=== PATIENT | female | born 1965 | race Caucasian/White ===

== ENCOUNTER 2016-06-12 16:00 | Emergency (ER) | payer SELFPAY ==
[2016-06-12] MEDS ORDERED: Lidocaine 1% 20 ML MDV INJECT ONE (16:21)
[2016-06-12] MEDS ORDERED: Diphtheria,Pertussis(Acell),Tetanus Vaccine 0.5 ML Syringe IM ONE (16:22)
[2016-06-12] MEDS ORDERED: Bacitracin Oint 1 GM U/D Packet TOP ONE (16:23)
--- NOTE | 2016-06-12 16:24 | EDM.PDOC ---
Addendum entered and electronically signed by Deb Vigil 06/12/16 17:10: Patient is complaining of quite a bit of pain to her left hand will give her a prescription hydrocodone/APAP 5/325 mg tablets one 3 times a day when necessary pain #6 tablets no refill Original Note: ED HPI Skin/Rash - General Chief Complaint: Laceration Stated Complaint: CUT LEFT HAND Time Seen by Provider: 06/12/16 16:23 Source: Reports: Patient History Limitations: Reports: No limitations - History of Present Illness INITIAL COMMENTS - FREE TEXT/NARRATIVE: HISTORY AND PHYSICAL: [ 51-year-old female presenting with laceration to the lateral dorsal surface of her left hand] History of Present Illness: [Just prior to presentation to the emergency room patient was making picture frames and the glass shattered cutting her hand. Last tetanus vaccine was 8 years ago] Review of Systems: As per history of present illness and below otherwise all systems reviewed and negative. Past medical history: As per history of present illness and as reviewed below otherwise noncontributory. Surgical history: As per history of present illness and as reviewed below otherwise noncontributory. Social history: No reported history of drug or alcohol abuse. Family history: As per history of present illness and as reviewed below otherwise noncontributory. Physical exam: Alert and oriented female answering questions well HEENT: Atraumatic, normocehpalic, pupils reactive, negative for conjunctival pallor or scleral icterus, mucous membranes moist, throat clear, neck supple, nontender, trachea midline. Lungs: Clear to auscultation, breath sounds equal bilaterally, chest non tender. Heart: S1S2, regular, negative for clicks, rubs, or JVD. Abdomen: Soft, nondistended, nontender. Negative for masses or hepatossplenmegaly. Negative for costovertebral tenderness. Extremities: Dorsum of left hand with a 4-1/2 cm laceration with multiple small flaps, full sensation is present she is able to flex and extend her fingers. Capillary Refill is less than 2 second negative for cords or calf pain. Neurovascular unremarkable. Neuro: Awake, alert, oriented. Cranial nerves II through XII unremarkable. Cerebellum unremarkable. Motor and sensory unremarkable throughout. Exam nonfocal. Diagnostics: [] Therapeutics: [Sutures placed Tetanus vaccine] Impression: [Laceration with repair left hand] Plan: [Home Keep clean and dry Sutures out in 7-[address] Reji NORTON [facility] [address] [place] [address], [address] [place] [address] Should any signs of infection heat redness pustular material he need to be reevaluated immediately ] Definitive disposition and diagnosis as appropriate pending reevaluation and review of above. Timing: Reports: still present Location, Skin: Reports: upper extremity, left Quality: Reports: Sharp Severity: moderate Known Identified Source: yes Place of Occurrence: home Sick Contact: no Associated Symptoms: Reports: no other symptoms Similar Symptoms Previously: no Recent Medical Care: no - Related Data Allergies Allergy/AdvReac Type Severity Reaction Status Date / Time morphine Allergy Nausea and Verified 06/12/14 20:52 Vomiting Home Meds: Ambulatory Orders Medication Instructions Recorded Confirmed Lisinopril 1 tab PO DAILY 06/12/14 06/12/14 Omeprazole [Prilosec] 1 cap PO DAILY 06/12/14 06/12/14 atorvaSTATin [Lipitor] 1 tab PO DAILY 06/12/14 06/12/14 sitaGLIPtin Phos/Metformin HCl 1 tab PO DAILY 06/12/14 06/12/14 [Janumet 50-1,000 MG] metFORMIN HCl [Fortamet] 06/12/16 Social & Family History - Tobacco Use Smoking Status *Q: Never Smoker - Alcohol Use Days Per Week of Alcohol Use: 0 - Recreational Drug Use Recreational Drug Use: No ED ROS GENERAL - Review of Systems Review Of Systems: ROS reveals no pertinent complaints other than HPI. ED EXAM, SKIN/RASH Exam: See Below (see dictation) ED SKIN PROCEDURES - Laceration/Wound Repair Left Anterior Lateral Hand Lac/wound length in cm: 4.5 Appearance: subcutaneous Distal NVT: neuro & vascular intact, no tendon injury Anesthetic type: local Local anesthesia - Lidocaine (Xylocaine): 1% plain Local anesthetic volume: 5cc Skin prep: saline Exploration/Debridement/Repair: wound explored, in a bloodless field, explored to base, minimal debridement Closed with: sutures, dermabond Suture size: 4-0 # of sutures: 7 Suture type: prolene, Running, simple Suture size: 4-0 # of sutures: 2 Repaired with: chromic Course - Orders/Labs/Meds Orders: Active Orders 24 hr Category Date Time Status Vaccines to be Administered [RC] PER UNIT ROUTINE Care 06/12/16 16:22 Active Meds: Medications Discontinued Medications Generic Name Dose Route Start Last Admin Trade Name Rayo PRN Reason Stop Dose Admin Bacitracin 1 dose 06/12/16 16:23 Bacitracin Oint 1 Gm TOP 06/12/16 16:24 ONETIME ONE Diphtheria/Tetanus/Acell Pertussis 0.5 ml 06/12/16 16:22 Adacel IM 06/12/16 16:23 .ONCE ONE Lidocaine HCl 20 ml 06/12/16 16:21 Xylocaine 1% INJECT 06/12/16 16:22 ONETIME ONE Octyl Cyanoacrylate 1 applic 06/12/16 16:45 Dermabond Advance TOP 06/12/16 16:46 ONETIME ONE Octyl Cyanoacrylate 1 applic 06/12/16 16:48 Dermabond Mini TOP 06/12/16 16:49 ONETIME ONE Departure - Departure Time of Disposition: 17:00 Disposition: Home, Self-Care 01 Condition: good Clinical Impression: Laceration of left hand Qualifiers: Encounter type: initial encounter Foreign body presence: without foreign body Qualified Code(s): S61.412A - Laceration without foreign body of left hand, initial encounter Referrals: Paxton Pelaez MD [Primary Care Provider] - Rachel Milan MD [Physician] - Forms: ED Department Discharge Additional Instructions: The following information is given to patients seen in the emergency department who are being discharged to home. This information is to outline your options for follow-up care. We provide all patients seen in our emergency department with a follow-up referral. The need for follow-up, as well as the timing and circumstances, are variable depending upon the specifics of your emergency department visit. If you don't have a primary care physician on staff, we will provide you with a referral. We always advise you to contact your personal physician following an emergency department visit to inform them of the circumstance of the visit and for follow-up with them and/or the need for any referrals to a consulting specialist. The emergency department will also refer you to a specialist when appropriate. This referral assures that you have the opportunity for followup care with a specialist. All of these measure are taken in an effort to provide you with optimal care, which includes your followup. Under all circumstances we always encourage you to contact your private physician who remains a resource for coordinating your care. When calling for followup care, please make the office aware that this follow-up is from your recent emergency room visit. If for any reason you are refused follow-up, please contact the [facility] emergency department at and asked to speak to the emergency department charge nurse. Followup with Dr. Kayli NORTON [facility] [address] [place] [address], [address] [place] [address] - My Orders Last 24 Hours: My Active Orders 06/12/16 16:22 Vaccines to be Administered [RC] PER UNIT ROUTINE - Assessment/Plan Last 24 Hours: My Active Orders 06/12/16 16:22 Vaccines to be Administered [RC] PER UNIT ROUTINE
[2016-06-12] MEDS ORDERED: Octyl 2-Cyanoacrylate 1 Tube TOP ONE (16:45)
[2016-06-12] MEDS ORDERED: Octyl 2-Cyanoacrylate 1 APPLIC TUBE TOP ONE (16:48)
[2016-06-12 17:33] VITALS: BP 119/76
== END 2016-06-12 17:25 | disposition home or self-care (01) ==
LOC: MW.ED 16:00
DX: S61.412A Laceration without foreign body of left hand, initial encounter (principal); Z23 Encounter for immunization; Z88.5 Allergy status to narcotic agent; Z79.899 Other long term (current) drug therapy; W25.XXXA Contact with sharp glass, initial encounter; Y92.009 Unspecified place in unspecified non-institutional (private) residence as the place of occurrence of the external cause
CPT/HCPCS: 12002; 90471; 90715; 99282; A9270; 99283

== ENCOUNTER 2018-08-19 19:04 | Emergency (ER) | payer OTHER ==
[2018-08-19] MEDS ORDERED: Sodium Chloride 0.9% 10 ML Syringe FLUSH PRN (19:34)
[2018-08-19] MEDS ORDERED: Sodium Chloride 0.9% 1,000 ML IV ONE (19:34)
[2018-08-19] MEDS ORDERED: Sodium Chloride 0.9% 2.5 ML Syringe FLUSH PRN (19:34)
[2018-08-19] MEDS ORDERED: methylPREDNISolone Sodium Succinate 125 MG/2 ML SDV IVPUSH ONE (19:34)
[2018-08-19] MEDS ORDERED: LORazepam 2 MG/ML SDV IVPUSH ONE (19:35)
[2018-08-19] MEDS ORDERED: Ketorolac 30 MG/ML SDV IVPUSH ONE (19:35)
[2018-08-19] MEDS ORDERED: Ondansetron 4 MG/2 ML SDV IVPUSH ONE (19:35)
[2018-08-19] MEDS ORDERED: diphenhydrAMINE 50 MG/ML SDV IVPUSH ONE (19:35)
--- NOTE | 2018-08-19 19:41 | EDM.PDOC ---
ED HPI GENERAL MEDICAL PROBLEM - General Chief Complaint: Headache Stated Complaint: HEADACHE Time Seen by Provider: 08/19/18 19:27 - History of Present Illness INITIAL COMMENTS - FREE TEXT/NARRATIVE: HISTORY AND PHYSICAL: History of present illness: The patient is a 53-year-old female who follows at [facility] and has a history of [id number] diabetes and hypercholesterolemia and presents with complaints of migraines in her past and not having a migraine for many years and then last month starting to have them again. She had one approximately a month ago and she followed up with her provider in the clinic after it resolved but then returned and she had a CAT scan here on July 29 which was negative. She was given medication at that time in the clinic and was told that she may have to follow-up with neurology for recommendations for maintenance medications if the headaches continued to occur. 4 days ago she started having her typical aura which are visual disturbances like Aurora lightning bolts in her eyes and the headache came on in the typical fashion on the right side. It's associated with nausea and vomiting. She called into her provider in the clinic who gave her oral Imitrex to try as well as Zofran and she said that initially it was working but now it is not. She is very frustrated and anxious because this is her third migraine headache and she is not eating given enough tools to try to treat this at home or intercept it when it started happening. She has no fevers chills chest pain or shortness of breath no sore throat no seasonal allergies or sinus pain or drainage. The pain is all over her head but more on the right side and is on the front and side. She says that the visual disturbances she initially gets as an aura have subsided and she has no blurred vision but she is sensitive to light. She has no other systemic complaints and no focal weakness numbness or tingling of her extremities except the tips of her right finger. She is here for management of her headache pain. As far as the intensity of the pain, the patient says that this is not any worse than her prior to headaches over the last one month is just not abating and she is here for help with that. The location and onset and character is all similar to the prior to headaches. Review of systems: As per history of present illness and below otherwise all systems reviewed and negative. Past medical history: As per history of present illness and as reviewed below otherwise noncontributory. Surgical history: As per history of present illness and as reviewed below otherwise noncontributory. Social history: No reported history of drug or alcohol abuse. Family history: As per history of present illness and as reviewed below otherwise noncontributory. Physical exam: General: Well-developed well-nourished overweight female who is nontoxic and vital signs are noted by me. She wears sunglasses during my interview as she is photophobic. HEENT: Atraumatic, normocephalic, pupils reactive, negative for conjunctival pallor or scleral icterus, mucous membranes moist, throat clear, neck supple, nontender, trachea midline. There is no evidence of any sinus tenderness nuchal rigidity or cervical adenopathy and I cannot reproduce the pain on palpation of the scalp or neck. She has no specific temporal artery tenderness on my exam.. Her sclerae are not injected and there is no tearing of either eye. Lungs: Clear to auscultation, breath sounds equal bilaterally, chest nontender. Heart: S1S2, regular rate and rhythm no overt murmurs Abdomen: Soft, nondistended, nontender. NABS Pelvis: Deferred Genitourinary: Deferred. Rectal: Deferred. Extremities: Atraumatic, no pedal edema Neurovascular unremarkable. Neuro: Awake, alert, oriented. Cranial nerves II through XII unremarkable. Cerebellum unremarkable. Motor and sensory unremarkable throughout. Exam nonfocal. Diagnostics: CBC CMP sedimentation rate Therapeutics: IV fluids Toradol Zofran Benadryl Solu-Medrol Ativan DHE, low dose dilaudid I discussed with the patient and at bedside that our goal with medication here is to have the pain started to trend downwards and that the likelihood of us eliminating the headache completely is small. She states understanding and says that she would like any relief that we can offer. She says that the doctor she is following with at [facility] has said that if she continues to have these headaches they would make the referral for neurology and get her on medications to be more preventative and to have further evaluation. The patient is in agreement that she does not need repeat imaging as she just had a CAT scan on July 29 which I reviewed and is negative. Patient says her headache has gone from a 10/10 to a 7/10 and she is no longer nauseated. I have discussed giving her a very small dose of Dilaudid and she says she has taken that in the past without a reaction and it is only morphine that she has had issues with. I will also give her a dose of DHE. She is currently finishing her IV fluids and I told her that after these meds she will be disposition home and I will write her for prescription of Fioricet with codeine to try. Impression: Migraine headache with aura, history of same Definitive disposition and diagnosis as appropriate pending reevaluation and review of above. 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 ED EXAM, GENERAL - Physical Exam Exam: See Below (See dictation) Course - Vital Signs Last Recorded V/S: Last Vital Signs Temp 36.4 C 08/19/18 19:23 Pulse 106 H 08/19/18 19:23 Resp 18 08/19/18 19:23 BP 134/96 H 08/19/18 19:23 Pulse Ox 94 L 08/19/18 19:23 - Orders/Labs/Meds Orders: Active Orders 24 hr Category Date Time Status Sodium Chloride 0.9% [Saline Flush] Med 08/19/18 19:34 Active 10 ml FLUSH ASDIRECTED PRN Sodium Chloride 0.9% [Saline Flush] Med 08/19/18 19:34 Active 2.5 ml FLUSH ASDIRECTED PRN Saline Lock Insert [OM.PC] Stat Oth 08/19/18 19:34 Ordered Medication Orders Sodium Chloride (Saline Flush) 10 ml FLUSH ASDIRECTED PRN PRN Reason: Keep Vein Open Sodium Chloride (Saline Flush) 2.5 ml FLUSH ASDIRECTED PRN PRN Reason: Keep Vein Open Labs: Laboratory Tests 08/19/18 08/19/18 Range/Units 19:45 19:45 WBC 9.78 (4.0-11.0) K/uL RBC 4.65 (4.30-5.90) M/uL Hgb 13.7 (12.0-16.0) g/dL Hct 40.6 (36.0-46.0) % MCV 87.3 (80.0-98.0) fL MCH 29.5 (27.0-32.0) pg MCHC 33.7 (31.0-37.0) g/dL RDW Std Deviation 45.0 (28.0-62.0) fl RDW Coeff of Mayr 14 (11.0-15.0) % Plt Count 344 (150-400) K/uL MPV 9.20 (7.40-12.00) fL Neut % (Auto) 35.1 L (48.0-80.0) % Lymph % (Auto) 54.5 H (16.0-40.0) % Glasscock % (Auto) 8.2 (0.0-15.0) % Eos % (Auto) 1.7 (0.0-7.0) % Baso % (Auto) 0.5 (0.0-1.5) % Neut # (Auto) 3.4 (1.4-5.7) K/uL Lymph # (Auto) 5.3 H (0.6-2.4) K/uL Glasscock # (Auto) 0.8 (0.0-0.8) K/uL Eos # (Auto) 0.2 (0.0-0.7) K/uL Baso # (Auto) 0.1 (0.0-0.1) K/uL Nucleated RBC % 0.0 /100WBC Nucleated RBCs # 0 K/uL ESR 19 (0-29) mm/hr Sodium 138 (136-145) mmol/L Potassium 4.1 (3.5-5.1) mmol/L Chloride 103 (98-107) mmol/L Carbon Dioxide 22.6 (21.0-32.0) mmol/L BUN 10 (7.0-18.0) mg/dL Creatinine 0.7 (0.6-1.0) mg/dL Est Cr Clr Drug Dosing 65.99 mL/min Estimated GFR (MDRD) > 60.0 ml/min Glucose 153 H (74-106) mg/dL Calcium 8.8 (8.5-10.1) mg/dL Total Bilirubin 0.2 (0.2-1.0) mg/dL AST 21 (15-37) IU/L ALT 38 (14-63) IU/L Alkaline Phosphatase 93 (46-116) U/L Total Protein 7.6 (6.4-8.2) g/dL Albumin 3.6 (3.4-5.0) g/dL Globulin 4.0 (2.6-4.0) g/dL Albumin/Globulin Ratio 0.9 (0.9-1.6) Meds: Medications Generic Name Dose Route Start Last Admin Trade Name Freq PRN Reason Stop Dose Admin Sodium Chloride 10 ml 08/19/18 19:34 Saline Flush FLUSH ASDIRECTED PRN Keep Vein Open Sodium Chloride 2.5 ml 08/19/18 19:34 Saline Flush FLUSH ASDIRECTED PRN Keep Vein Open Discontinued Medications Generic Name Dose Route Start Last Admin Trade Name Freq PRN Reason Stop Dose Admin Dihydroergotamine Mesylate 1 mg 08/19/18 20:49 Dhe 45 IVPUSH 08/19/18 20:50 ONETIME ONE Diphenhydramine HCl 25 mg 08/19/18 19:35 08/19/18 20:01 Benadryl IVPUSH 08/19/18 19:36 25 mg ONETIME ONE Administration Hydromorphone HCl 0.5 mg 08/19/18 20:50 Dilaudid IVPUSH 08/19/18 20:51 ONETIME ONE Sodium Chloride 1,000 mls @ 999 mls/hr 08/19/18 19:34 08/19/18 20:01 Normal Saline IV 08/19/18 20:34 999 mls/hr STAT ONE Administration Ketorolac Tromethamine 30 mg 08/19/18 19:35 08/19/18 20:01 Toradol IVPUSH 08/19/18 19:36 30 mg ONETIME ONE Administration Lorazepam 1 mg 08/19/18 19:35 08/19/18 20:02 Ativan IVPUSH 08/19/18 19:36 1 mg ONETIME ONE Administration Methylprednisolone Sodium Succinate 125 mg 08/19/18 19:34 08/19/18 20:01 Solu-Medrol IVPUSH 08/19/18 19:35 125 mg ONETIME ONE Administration Ondansetron HCl 4 mg 08/19/18 19:35 08/19/18 20:02 Zofran IVPUSH 08/19/18 19:36 4 mg ONETIME ONE Administration Departure - Departure Time of Disposition: 20:54 Disposition: Home, Self-Care 01 Condition: Good Clinical Impression: Migraine - Discharge Information Referrals: Barrett Solorio MD [Primary Care Provider] - Forms: ED Department Discharge Additional Instructions: The following information is given to patients seen in the emergency department who are being discharged to home. This information is to outline your options for follow-up care. We provide all patients seen in our emergency department with a follow-up referral. The need for follow-up, as well as the timing and circumstances, are variable depending upon the specifics of your emergency department visit. If you don't have a primary care physician on staff, we will provide you with a referral. We always advise you to contact your personal physician following an emergency department visit to inform them of the circumstance of the visit and for follow-up with them and/or the need for any referrals to a consulting specialist. The emergency department will also refer you to a specialist when appropriate. This referral assures that you have the opportunity for followup care with a specialist. All of these measure are taken in an effort to provide you with optimal care, which includes your followup. Under all circumstances we always encourage you to contact your private physician who remains a resource for coordinating your care. When calling for followup care, please make the office aware that this follow-up is from your recent emergency room visit. If for any reason you are refused follow-up, please contact the emergency department at and ask to speak to the emergency department charge nurse. [address] [place] [address] Please use the medications that you have at home and given to you by your provider for your headache pain and her nausea. He may also try the new prescription for your headache pain as you choose. Please connect with her provider in the clinic and get referral information for neurology for further care and evaluation of your migraines. Return to ER as needed and as discussed. - My Orders Last 24 Hours: My Active Orders 08/19/18 19:34 Sodium Chloride 0.9% [Saline Flush] 10 ml FLUSH ASDIRECTED PRN Sodium Chloride 0.9% [Saline Flush] 2.5 ml FLUSH ASDIRECTED PRN Saline Lock Insert [OM.PC] Stat - Assessment/Plan Last 24 Hours: My Active Orders 08/19/18 19:34 Sodium Chloride 0.9% [Saline Flush] 10 ml FLUSH ASDIRECTED PRN Sodium Chloride 0.9% [Saline Flush] 2.5 ml FLUSH ASDIRECTED PRN Saline Lock Insert [OM.PC] Stat
[2018-08-19 20:17] LABS: CHLORIDE,CL 103 mmol/L (98-107); SODIUM,NA 138 mmol/L (136-145)
[2018-08-19] MEDS ORDERED: Dihydroergotamine 1 MG/ML SDV IVPUSH ONE (20:49)
[2018-08-19] MEDS ORDERED: HYDROmorphone 2 MG/ML Syringe IVPUSH ONE (20:50)
[2018-08-19 21:50] VITALS: BP 96/60
== END 2018-08-19 21:21 | disposition home or self-care (01) ==
LOC: MW.ED 19:04
DX: G43.109 Migraine with aura, not intractable, without status migrainosus (principal); E78.00 Pure hypercholesterolemia, unspecified; I10 Essential (primary) hypertension; Z88.5 Allergy status to narcotic agent; Z79.899 Other long term (current) drug therapy; Z79.84 Long term (current) use of oral hypoglycemic drugs
CPT/HCPCS: 36415; 80053; 85025; 85652; 96361; 96374; 96375; 99284; J1170; J1200; J1885; J2060; J2405; J2930; J7040

== ENCOUNTER 2018-09-21 11:41 | Emergency (ER) | payer OTHER ==
[2018-09-21] MEDS ORDERED: LORazepam 2 MG/ML SDV IVPUSH ONE (11:56)
[2018-09-21] MEDS ORDERED: Sodium Chloride 0.9% 2.5 ML Syringe FLUSH PRN (11:56)
[2018-09-21] MEDS ORDERED: Ondansetron 4 MG/2 ML SDV IVPUSH ONE (11:56)
[2018-09-21] MEDS ORDERED: HYDROmorphone 2 MG/ML Syringe IVPUSH ONE (11:56)
[2018-09-21] MEDS ORDERED: Sodium Chloride 0.9% 1,000 ML IV ONE ×2 (11:56→12:56)
[2018-09-21] MEDS ORDERED: Sodium Chloride 0.9% 10 ML Syringe FLUSH PRN (11:56)
--- NOTE | 2018-09-21 12:00 | EDM.PDOC ---
ED HPI GENERAL MEDICAL PROBLEM - General Chief Complaint: Headache Stated Complaint: HEADACHE Time Seen by Provider: 09/21/18 11:50 Source of Information: Reports: Patient History Limitations: Reports: No Limitations - History of Present Illness INITIAL COMMENTS - FREE TEXT/NARRATIVE: History of present illness: []Patient has a history of migraine headaches and was in the neurology office this morning and sent to the ER due to the severity of acute pain. It started yesterday and she is been vomiting continuously. Patient denies any fevers, chills, neck stiffness or change in vision. Her headache is mostly on the right side and is a typical type for her migraines. She has had a CT and MRI of her brain which were both normal. Patient also complains of abdominal pain since starting her new migraine medications, chest pain after being given Dilaudid and bilateral leg pain from standing over the toilet vomiting last night. Review of systems: As per history of present illness and below otherwise all systems reviewed and negative. Past medical history: As per history of present illness and as reviewed below otherwise noncontributory. Surgical history: As per history of present illness and as reviewed below otherwise noncontributory. Social history: No reported history of drug or alcohol abuse. Family history: As per history of present illness and as reviewed below otherwise noncontributory. Physical exam: General: Well developed, well nourished in a painful distress and crying HEENT: Atraumatic, normocephalic, pupils 3 mm bilaterally reactive, negative for conjunctival pallor or scleral icterus, mucous membranes moist, throat clear , neck supple, no nuchal rigidity, no sinus tenderness to palpation nontender, trachea midline. Lungs: Clear to auscultation, breath sounds equal bilaterally, chest nontender. Heart: S1S2, regular, negative for clicks, rubs, or JVD. Abdomen: NABS, Soft, nondistended, nontender. Negative for masses or hepatosplenomegaly. Negative for costovertebral tenderness. Pelvis: Stable nontender. Genitourinary: Deferred. Rectal: Deferred. Extremities: Atraumatic, negative for cords or calf pain. Neurovascular unremarkable. Neuro: Awake, alert, oriented. Cranial nerves II through XII unremarkable. Cerebellum unremarkable. Motor and sensory unremarkable throughout. Exam nonfocal. Skin:warm and dry Diagnostics: EKG, Cardiac monitoring, bedside glucose-106 Therapeutics: IV hydration, Dilaudid, Toradol, Ativan, reglan ED Course: Improved after 2 L of saline and Reglan. Impression: Migraine headache Prescriptions: None Plan: Take meds as directed, follow up with your primary care physician, return to ER if symptoms worsen or change. Definitive disposition and diagnosis as appropriate pending reevaluation and review of above. Headache Pain Score (Numeric/FACES): 10 chest Pain Score (Numeric/FACES): 5 - Related Data Allergies Allergy/AdvReac Type Severity Reaction Status Date / Time morphine Allergy Nausea and Verified 09/21/18 11:48 Vomiting Home Meds: Home Meds Lisinopril 2.5 mg PO DAILY 06/12/14 [History] atorvaSTATin [Lipitor] 1 tab PO DAILY 06/12/14 [History] metFORMIN HCl [Fortamet] 1,000 mg PO BID 06/12/16 [History] ALPRAZolam [Alprazolam] 0.25 mg PO ASDIRECTED 09/21/18 [History] ALPRAZolam [Alprazolam] 1 mg PO ASDIRECTED 09/21/18 [History] Butalbit/Acetamin/Caff/Codeine [Qdypkg-Uatyvboufli-Swrb-Codein] 1 each PO ASDIRECTED 09/21/18 [History] Dulaglutide [Trulicity] 0.75 mg SQ WEEKLY 09/21/18 [History] Promethazine [Phenergan] 12.5 mg PO Q4H PRN 09/21/18 [History] Zolpidem [Ambien] 10 mg PO BID 09/21/18 [History] glipiZIDE [Glipizide ER] 5 mg PO DAILY 09/21/18 [History] Past Medical History HEENT History: Reports: None Cardiovascular History: Reports: High Cholesterol, Hypertension Respiratory History: Reports: None Gastrointestinal History: Reports: None Genitourinary History: Reports: None [employer] History: Reports: None Musculoskeletal History: Reports: None Neurological History: Reports: Migraines Psychiatric History: Reports: None Endocrine/Metabolic History: Reports: Diabetes, Type II Hematologic History: Reports: None Immunologic History: Reports: None Oncologic (Cancer) History: Reports: None Dermatologic History: Reports: None - Infectious Disease History Infectious Disease History: Reports: None - Past Surgical History Head Surgeries/Procedures: Reports: None Social & Family History - Family History Family Medical History: Noncontributory - Tobacco Use Smoking Status *Q: Never Smoker - Caffeine Use Caffeine Use: Reports: Coffee - Recreational Drug Use Recreational Drug Use: No ED ROS GENERAL - Review of Systems Review Of Systems: See Below - Physical Exam Exam: See Below Course - Vital Signs Last Recorded V/S: Last Vital Signs Temp 97.3 F 09/21/18 11:48 Pulse 80 09/21/18 14:37 Resp 16 09/21/18 14:37 BP 150/90 H 09/21/18 14:37 Pulse Ox 95 09/21/18 14:37 - Orders/Labs/Meds Orders: Active Orders 24 hr Category Date Time Status Blood Glucose Check, Bedside [RC] ONETIME Care 09/21/18 13:08 Active EKG Documentation Completion [RC] STAT Care 09/21/18 13:17 Active Saline Lock Insert [OM.PC] Stat Oth 09/21/18 11:56 Ordered Labs: Laboratory Tests 09/21/18 Range/Units 13:10 POC Glucose 106 (60-110) mg/dL Meds: Medications Discontinued Medications Generic Name Dose Route Start Last Admin Trade Name Freq PRN Reason Stop Dose Admin Hydromorphone HCl 0.5 mg 09/21/18 11:56 09/21/18 12:26 Dilaudid IVPUSH 09/21/18 11:57 0.5 mg ONETIME ONE Administration Sodium Chloride 1,000 mls @ 999 mls/hr 09/21/18 11:56 09/21/18 12:13 Normal Saline IV 09/21/18 12:56 999 mls/hr .Bolus ONE Administration Sodium Chloride 1,000 mls @ 999 mls/hr 09/21/18 12:56 09/21/18 13:09 Normal Saline IV 09/21/18 13:56 999 mls/hr .Bolus ONE Administration Ketorolac Tromethamine 30 mg 09/21/18 12:56 09/21/18 13:09 Toradol IVPUSH 09/21/18 12:57 30 mg ONETIME ONE Administration Lorazepam 0.5 mg 09/21/18 11:56 09/21/18 12:21 Ativan IVPUSH 09/21/18 11:57 0.5 mg ONETIME ONE Administration Metoclopramide HCl 10 mg 09/21/18 13:46 09/21/18 13:47 Reglan IVPUSH 09/21/18 13:47 Not Given ONETIME ONE Metoclopramide HCl 10 mg 09/21/18 13:46 09/21/18 13:55 Reglan IV 09/21/18 13:47 10 mg ONETIME ONE Administration Ondansetron HCl 4 mg 09/21/18 11:56 09/21/18 12:18 Zofran IVPUSH 09/21/18 11:57 4 mg ONETIME ONE Administration Sodium Chloride 10 ml 09/21/18 11:56 09/21/18 13:09 Saline Flush FLUSH 10 ml ASDIRECTED PRN Administration Keep Vein Open Sodium Chloride 2.5 ml 09/21/18 11:56 09/21/18 13:09 Saline Flush FLUSH 2.5 ml ASDIRECTED PRN Administration Keep Vein Open Departure - Departure Time of Disposition: 14:36 Disposition: Home, Self-Care 01 Condition: Good Clinical Impression: Migraine headache Qualifiers: Migraine type: unspecified Status migrainosus presence: without status migrainosus Intractability: not intractable Qualified Code(s): G43.909 - Migraine, unspecified, not intractable, without status migrainosus - Discharge Information *PRESCRIPTION DRUG MONITORING PROGRAM REVIEWED*: Not Applicable *COPY OF PRESCRIPTION DRUG MONITORING REPORT IN PATIENT MARIA GUADALUPE: Not Applicable Instructions: Migraine Headache, [id number] Referrals: [employer]rely[employer]ano, JEWELRY SALES REPRESENTATIVE [Nurse Practitioner] - 09/22/18 8:30 am Forms: ED Department Discharge Additional Instructions: The following information is given to patients seen in the emergency department who are being discharged to home. This information is to outline your options for follow-up care. We provide all patients seen in our emergency department with a follow-up referral. The need for follow-up, as well as the timing and circumstances, are variable depending upon the specifics of your emergency department visit. If you don't have a primary care physician on staff, we will provide you with a referral. We always advise you to contact your personal physician following an emergency department visit to inform them of the circumstance of the visit and for follow-up with them and/or the need for any referrals to a consulting specialist. The emergency department will also refer you to a specialist when appropriate. This referral assures that you have the opportunity for follow-up care with a specialist. All of these measure are taken in an effort to provide you with optimal care, which includes your follow-up. Under all circumstances we always encourage you to contact your private physician who remains a resource for coordinating your care. When calling for follow-up care, please make the office aware that this follow-up is from your recent emergency room visit. If for any reason you are refused follow-up, please contact the [facility] Emergency Department at and asked to speak to the emergency department charge nurse. Take meds as directed, follow up with your primary care physician, return to ER if symptoms worsen or change. [facility] [address] [place] [id number] - My Orders Last 24 Hours: My Active Orders 09/21/18 11:56 Saline Lock Insert [OM.PC] Stat 09/21/18 13:08 Blood Glucose Check, Bedside [RC] ONETIME 09/21/18 13:17 EKG Documentation Completion [RC] STAT - Assessment/Plan Last 24 Hours: My Active Orders 09/21/18 11:56 Saline Lock Insert [OM.PC] Stat 09/21/18 13:08 Blood Glucose Check, Bedside [RC] ONETIME 09/21/18 13:17 EKG Documentation Completion [RC] STAT
[2018-09-21] MEDS ORDERED: Ketorolac 30 MG/ML SDV IVPUSH ONE (12:56)
[2018-09-21] MEDS ORDERED: Metoclopramide 10 MG/2 ML SDV IVPUSH ONE (13:46)
[2018-09-21] MEDS ORDERED: Metoclopramide 10 MG/2 ML SDV IV ONE (13:46)
[2018-09-21 14:38] VITALS: BP 150/90
== END 2018-09-21 14:52 | disposition home or self-care (01) ==
LOC: MW.ED 11:41
DX: G43.909 Migraine, unspecified, not intractable, without status migrainosus (principal); I10 Essential (primary) hypertension; E11.9 Type 2 diabetes mellitus without complications; E78.00 Pure hypercholesterolemia, unspecified; Z88.5 Allergy status to narcotic agent; Z79.84 Long term (current) use of oral hypoglycemic drugs; Z79.899 Other long term (current) drug therapy
CPT/HCPCS: 82962; 93005; 96361; 96374; 96375; 99284; J1170; J1885; J2060; J2405; J2765; J7040

== ENCOUNTER 2019-01-23 16:07 | Observation (INO) | payer OTHER ==
[2019-01-23] MEDS ORDERED: Aspirin 81 MG Tab.Chew PO ONE (16:42)
[2019-01-23] MEDS ORDERED: Sodium Chloride 0.9% 1,000 ML IV ONE (16:43)
--- NOTE | 2019-01-23 16:45 | EDM.PDOC ---
ED HPI GENERAL MEDICAL PROBLEM - General Chief Complaint: Chest Pain Stated Complaint: CHEST PAIN Time Seen by Provider: 01/23/19 16:23 Source of Information: Reports: Patient History Limitations: Reports: No Limitations - History of Present Illness INITIAL COMMENTS - FREE TEXT/NARRATIVE: HISTORY AND PHYSICAL: History of present illness: Patient is a 53-year-old female who presents to the ED today with concern of chest pain over the last 2 hours. Patient states the pain is in the middle of her chest and is a sharp and dull sensation. Patient states she did have an episode of chest pain yesterday but it only lasted a few seconds before resolving. Patient states she does have a history of type 2 diabetes. Patient states that her mother did pass away in her 50s due to a heart attack in her father also had a heart attack when he was 39. Patient states she has not taken anything for her symptoms. Patient denies fever, chills, shortness of breath, or cough. Denies headache, neck stiff ness, change in vision, syncope, or near syncope. Denies nausea, vomiting, abdominal pain, diarrhea, constipation, or dysuria. Has not noted any blood in urine or stool. Patient has been eating and drinking appropriately. Review of systems: As per history of present illness and below otherwise all systems reviewed and negative. Past medical history: As per history of present illness and as reviewed below otherwise noncontributory. Surgical history: As per history of present illness and as reviewed below otherwise noncontributory. Social history: See social history for further information Family history: As per history of present illness and as reviewed below otherwise noncontributory. Physical exam: General: Patient is alert, oriented, and in no acute distress. Patient sitting comfortably on exam table. HEENT: Atraumatic, normocephalic, pupils equal and reactive bilaterally, negative for conjunctival pallor or scleral icterus, mucous membranes moist, TMs normal bilaterally, throat clear, neck supple, nontender, trachea midline. No drooling or trismus noted. No meningeal signs. No hot potato voice noted. Lungs: Clear to auscultation, breath sounds equal bilaterally, chest nontender. Heart: S1S2, regular rate and rhythm without overt murmur Abdomen: Soft, nondistended, nontender. Negative for masses or hepatosplenomegaly. Negative for costovertebral tenderness. Pelvis: Stable nontender. Genitourinary: Deferred. Rectal: Deferred. Skin: Intact, warm, dry. No lesions or rashes noted. Extremities: Atraumatic, negative for cords or calf pain. Neurovascular unremarkable. Neuro: Awake, alert, oriented. Cranial nerves II through XII unremarkable. Cerebellum unremarkable. Motor and sensory unremarkable throughout. Exam nonfocal. Notes: Dr. López consulted on patient and accepting of admission to observation on telemetry Voices understanding and is agreeable to plan of care. Denies any further questions or concerns at this time. Diagnostics: CBC, CMP, UA, EKG, CXR, Troponin, Lipase Therapeutics: ASA, Nitro Impression: Chest pain, r/o ACS Plan: Admit to observation on telemetry to Dr. López Definitive disposition and diagnosis as appropriate pending reevaluation and review of above. mid chest Pain Score (Numeric/FACES): 5 - Related Data Allergies Allergy/AdvReac Type Severity Reaction Status Date / Time morphine Allergy Nausea and Verified 01/23/19 16:14 Vomiting Home Meds: Home Meds Lisinopril 2.5 mg PO DAILY 06/12/14 [History] atorvaSTATin [Lipitor] 1 tab PO DAILY 06/12/14 [History] metFORMIN HCl [Fortamet] 1,000 mg PO BID 06/12/16 [History] Dulaglutide [Trulicity] 1.25 mg SQ WEEKLY 09/21/18 [History] Zolpidem [Ambien] 10 mg PO BID 09/21/18 [History] glipiZIDE [Glipizide ER] 5 mg PO DAILY 09/21/18 [History] Past Medical History HEENT History: Reports: None Cardiovascular History: Reports: High Cholesterol, Hypertension Respiratory History: Reports: None Gastrointestinal History: Reports: None Genitourinary History: Reports: None [employer]ER History: Reports: None Musculoskeletal History: Reports: None Neurological History: Reports: Migraines Psychiatric History: Reports: None Endocrine/Metabolic History: Reports: Diabetes, Type II Hematologic History: Reports: None Immunologic History: Reports: None Oncologic (Cancer) History: Reports: None Dermatologic History: Reports: None - Infectious Disease History Infectious Disease History: Reports: Chicken Pox - Past Surgical History Head Surgeries/Procedures: Reports: None Social & Family History - Family History Family Medical History: Noncontributory - Tobacco Use Smoking Status *Q: Never Smoker - Caffeine Use Caffeine Use: Reports: Coffee - Recreational Drug Use Recreational Drug Use: No ED ROS GENERAL - Review of Systems Review Of Systems: Comprehensive ROS is negative, except as noted in HPI. ED EXAM, GENERAL - Physical Exam Exam: See Below (see dictation) Course - Vital Signs Last Recorded V/S: Last Vital Signs Temp 97.0 F 01/23/19 16:11 Pulse 90 01/23/19 16:11 Resp 16 01/23/19 16:11 BP 114/69 01/23/19 17:18 Pulse Ox 99 01/23/19 16:11 - Orders/Labs/Meds Orders: Active Orders 24 hr Category Date Time Status Admission Status [Patient Status] [ADT] Stat ADT 01/23/19 17:17 Ordered EKG Documentation Completion [RC] STAT Care 01/23/19 16:23 Active UA W/MICROSCOPIC [URIN] Stat Lab 01/23/19 17:00 Results Sodium Chloride 0.9% [Normal Saline] 1,000 ml Med 01/23/19 16:43 Active IV STAT Medication Orders Sodium Chloride (Normal Saline) 1,000 mls @ 999 mls/hr IV STAT ONE Stop: 01/23/19 17:43 Last Admin: 01/23/19 17:02 Dose: 999 mls/hr Labs: Laboratory Tests 01/23/19 01/23/19 01/23/19 Range/Units 16:15 16:15 17:00 WBC 12.74 H (4.0-11.0) K/uL RBC 4.41 (4.30-5.90) M/uL Hgb 13.4 (12.0-16.0) g/dL Hct 39.1 (36.0-46.0) % MCV 88.7 (80.0-98.0) fL MCH 30.4 (27.0-32.0) pg MCHC 34.3 (31.0-37.0) g/dL RDW Std Deviation 44.1 (28.0-62.0) fl RDW Coeff of Mary 14 (11.0-15.0) % Plt Count 337 (150-400) K/uL MPV 9.80 (7.40-12.00) fL Neut % (Auto) 43.3 L (48.0-80.0) % Lymph % (Auto) 46.4 H (16.0-40.0) % [place] % (Auto) 8.9 (0.0-15.0) % Eos % (Auto) 1.1 (0.0-7.0) % Baso % (Auto) 0.3 (0.0-1.5) % Neut # (Auto) 5.5 (1.4-5.7) K/uL Lymph # (Auto) 5.9 H (0.6-2.4) K/uL [place] # (Auto) 1.1 H (0.0-0.8) K/uL Eos # (Auto) 0.1 (0.0-0.7) K/uL Baso # (Auto) 0.0 (0.0-0.1) K/uL Nucleated RBC % 0.0 /100WBC Nucleated RBCs # 0 K/uL Sodium 142 (136-145) mmol/L Potassium 3.6 (3.5-5.1) mmol/L Chloride 105 (98-107) mmol/L Carbon Dioxide 24.3 (21.0-32.0) mmol/L BUN 8 (7.0-18.0) mg/dL Creatinine 0.6 (0.6-1.0) mg/dL Est Cr Clr Drug Dosing 76.99 mL/min Estimated GFR (MDRD) > 60.0 ml/min Glucose 111 H (74-106) mg/dL Calcium 8.6 (8.5-10.1) mg/dL Total Bilirubin 0.1 L (0.2-1.0) mg/dL AST 31 (15-37) IU/L ALT 64 H (14-63) IU/L Alkaline Phosphatase 88 (46-116) U/L Troponin I < 0.050 (0.000-0.056) ng/mL Total Protein 7.5 (6.4-8.2) g/dL Albumin 3.7 (3.4-5.0) g/dL Globulin 3.8 (2.6-4.0) g/dL Albumin/Globulin Ratio 1.0 (0.9-1.6) Lipase 133 (73-393) U/L Urine Color YELLOW Urine Appearance CLEAR Urine pH 6.0 (5.0-8.0) Ur Specific [place] 1.010 (1.001-1.035) Urine Protein NEGATIVE (NEGATIVE) mg/dL Urine Glucose (UA) NEGATIVE (NEGATIVE) mg/dL Urine Ketones NEGATIVE (NEGATIVE) mg/dL Urine Occult Blood TRACE-INTACT H (NEGATIVE) Urine Nitrite NEGATIVE (NEGATIVE) Urine Bilirubin NEGATIVE (NEGATIVE) Urine Urobilinogen 0.2 (<2.0) EU/dL Ur Leukocyte Esterase NEGATIVE (NEGATIVE) Meds: Medications Generic Name Dose Route Start Last Admin Trade Name Freq PRN Reason Stop Dose Admin Sodium Chloride 1,000 mls @ 999 mls/hr 01/23/19 16:43 01/23/19 17:02 Normal Saline IV 01/23/19 17:43 999 mls/hr STAT ONE Administration Discontinued Medications Generic Name Dose Route Start Last Admin Trade Name Freq PRN Reason Stop Dose Admin Aspirin 324 mg 01/23/19 16:42 01/23/19 17:02 Aspirin PO 01/23/19 16:43 324 mg ONETIME ONE Administration Nitroglycerin 0.4 mg 01/23/19 16:42 01/23/19 17:18 Nitrostat SL 0.4 mg Q5M PRN Administration Chest Pain Departure - Departure Time of Disposition: 17:19 Disposition: Refer to Observation Clinical Impression: Chest pain Qualifiers: Chest pain type: unspecified Qualified Code(s): R07.9 - Chest pain, unspecified - Discharge Information Referrals: PCP,Unobtain [Primary Care Provider] - Forms: ED Department Discharge Sepsis Event Note - Evaluation Sepsis Screening Result: No Definite Risk - Focused Exam Vital Signs: Vital Signs Temp Pulse Resp BP BP Pulse Ox 01/23/19 17:18 114/69 01/23/19 17:12 109/72 01/23/19 17:05 132/63 01/23/19 16:11 97.0 F 90 16 173/64 H 99 Date Exam was Performed: 01/23/19 Time Exam was Performed: 17:18 - My Orders Last 24 Hours: My Active Orders 01/23/19 16:23 EKG Documentation Completion [RC] STAT 01/23/19 16:43 Sodium Chloride 0.9% [Normal Saline] 1,000 ml IV STAT 01/23/19 17:00 UA W/MICROSCOPIC [URIN] Stat 01/23/19 17:17 Admission Status [Patient Status] [ADT] Stat - Assessment/Plan Last 24 Hours: My Active Orders 01/23/19 16:23 EKG Documentation Completion [RC] STAT 01/23/19 16:43 Sodium Chloride 0.9% [Normal Saline] 1,000 ml IV STAT 01/23/19 17:00 UA W/MICROSCOPIC [URIN] Stat 01/23/19 17:17 Admission Status [Patient Status] [ADT] Stat
[2019-01-23 17:05] LABS: BLOOD UREA NITROGEN,BUN 8 mg/dL (7.0-18.0); CARBON DIOXIDE,CO2 24.3 mmol/L (21.0-32.0); CHLORIDE,CL 105 mmol/L (98-107); GLUCOSE RANDOM 111 mg/dL (74-106); LIPASE 133 U/L (73-393); POTASSIUM,K 3.6 mmol/L (3.5-5.1); SODIUM,NA 142 mmol/L (136-145)
[2019-01-23] MEDS: Nitroglycerin 0.4 MG Tab.SL SL PRN ×3 (17:05→17:18)
--- NOTE | 2019-01-23 17:13 | CR ---
Indication: Chest pain. Technique: Single AP portable view of the chest. Comparison: None Findings: The right hemidiaphragm is elevated. The heart is normal in size. The lungs are clear. No infiltrate, pleural effusion, or pneumothorax is identified. Impression: No acute cardiopulmonary process. Dictated by Irene Chand MD @ Jan 23 2019 5:11PM Signed by Dr. Irene Chand @ Jan 23 2019 5:12PM
--- NOTE | 2019-01-23 18:05 | PCM.HP.2 ---
<Chris Kong - Last Filed: 01/23/19 18:00> H&P History of Present Illness - General Date of Service: 01/23/19 Admit Problem/Dx: Admission Diagnosis/Problem Admission Diagnosis/Problem Chest pain Source of Information: Patient History Limitations: Reports: No Limitations - History of Present Illness Initial Comments - Free Text/Narative: Patient is a 53-year-old female with a past medical history of type 2 diabetes; last A1c of 7.9 less than 1 month ago; presenting today with 2 episodes of chest pain. Initial episode of chest pain was yesterday in the afternoon; patient was cleaning her porch when she noticed a centralized chest discomfort and some problems catching her breath. Patient admits having to go inside and sit down with resolution of pain and discomfort within 1 to 2 hours. This afternoon patient had another episode while at a friend's house; denies any exertion or any preceding events; describes pressure at the sternum without radiation of pain; denies any jaw claudication or left arm weakness; states having some mild shortness of breath. Patient endorses a strong family history of premature cardiac's events. Patient denies any history of tobacco abuse, illicit drug abuse and or consuming greater than social amount of alcohol. ER course: Initial troponin negative. Chest x-ray negative. Patient given aspirin and nitro with more or less resolution of pain. Patient denied any shortness of breath Bedside: Patient endorsing a 1 out of 10 central chest discomfort; denies any shortness of breath. Patient does not endorse any history of anxiety and/or depression but is curious to know whether this is anxiety. No other complaints at this time. mid chest Pain Score (Numeric/FACES): 5 - Related Data Allergies/Adverse Reactions: Allergies Allergy/AdvReac Type Severity Reaction Status Date / Time morphine Allergy Nausea and Verified 01/23/19 18:44 Vomiting Home Medications: Home Meds Lisinopril 2.5 mg PO DAILY 06/12/14 [History] atorvaSTATin [Lipitor] 1 tab PO DAILY 06/12/14 [History] metFORMIN HCl [Fortamet] 1,000 mg PO BID 06/12/16 [History] Dulaglutide [Trulicity] 1.5 mg SQ WEEKLY 09/21/18 [History] Zolpidem [Ambien] 10 mg PO BID PRN 09/21/18 [History] glipiZIDE [Glipizide ER] 5 mg PO DAILY 09/21/18 [History] Insulin Glargine,Hum.Rec.Anlog [Basaglar Kwikpen U-100] 80 unit SQ DAILY [History] Past Medical History HEENT History: Reports: None Cardiovascular History: Reports: High Cholesterol, Hypertension Respiratory History: Reports: None Gastrointestinal History: Reports: None Genitourinary History: Reports: None ADMISSIONS EVALUATOR History: Reports: None Musculoskeletal History: Reports: None Neurological History: Reports: Migraines Psychiatric History: Reports: None Endocrine/Metabolic History: Reports: Diabetes, Type II Hematologic History: Reports: None Immunologic History: Reports: None Oncologic (Cancer) History: Reports: None Dermatologic History: Reports: None - Infectious Disease History Infectious Disease History: Reports: Chicken Pox - Past Surgical History Head Surgeries/Procedures: Reports: None Social & Family History - Family History Family Medical History: Noncontributory - Tobacco Use Smoking Status *Q: Never Smoker - Caffeine Use Caffeine Use: Reports: Coffee - Recreational Drug Use Recreational Drug Use: No H&P Review of Systems - Review of Systems: Review Of Systems: See Below General: Denies: Fever, Chills, Malaise, Fatigue HEENT: Denies: Eye Pain, Sore Throat Pulmonary: Denies: Shortness of Breath, Pleuritic Chest Pain, Cough Cardiovascular: Reports: Chest Pain. Denies: Palpitations, Dyspnea on Exertion , Edema, Lightheadedness Gastrointestinal: Denies: Abdominal Pain, Constipation, Diarrhea, Decreased Appetite Genitourinary: Denies: Dysuria, Frequency, Burning, Urgency, Incontinence, Hematuria Musculoskeletal: Denies: Back Pain Skin: Denies: Rash Psychiatric: Reports: Anxiety. Denies: Confusion, Depression Neurological: Denies: Headache Exam - Exam Exam: See Below - Vital Signs Vital Signs: Last Vital Signs Temp 97.0 F 01/23/19 16:11 Pulse 86 01/23/19 17:22 Resp 18 01/23/19 17:22 BP 106/66 01/23/19 17:22 Pulse Ox 98 01/23/19 17:22 Weight: 103.419 kg - Exam General: Alert, Oriented, Cooperative HEENT: EOMI, Hearing Intact, Mucosa Moist & [place] Neck: Supple, Trachea Midline Lungs: Clear to Auscultation, Normal Respiratory Effort Cardiovascular: Regular Rate, Regular Rhythm GI/Abdominal Exam: Soft, Non-Tender, Other (obeses abdomen: previous scar secondary to hernia repair ) Back Exam: Normal Inspection. No: CVA Tenderness (L), CVA Tenderness (R) Extremities: Normal Range of Motion Skin: Warm, Dry, Intact Neurological: Cranial Nerves Intact Neuro Extensive - Mental Status: Alert, Oriented x3 - Patient Data Lab Results Last 24 hrs: Laboratory Results - last 24 hr 01/23/19 01/23/19 01/23/19 Range/Units 16:15 16:15 17:00 WBC 12.74 H (4.0-11.0) K/uL RBC 4.41 (4.30-5.90) M/uL Hgb 13.4 (12.0-16.0) g/dL Hct 39.1 (36.0-46.0) % MCV 88.7 (80.0-98.0) fL MCH 30.4 (27.0-32.0) pg MCHC 34.3 (31.0-37.0) g/dL RDW Std Deviation 44.1 (28.0-62.0) fl RDW Coeff of Mary 14 (11.0-15.0) % Plt Count 337 (150-400) K/uL MPV 9.80 (7.40-12.00) fL Neut % (Auto) 43.3 L (48.0-80.0) % Lymph % (Auto) 46.4 H (16.0-40.0) % Bradley % (Auto) 8.9 (0.0-15.0) % Eos % (Auto) 1.1 (0.0-7.0) % Baso % (Auto) 0.3 (0.0-1.5) % Neut # (Auto) 5.5 (1.4-5.7) K/uL Lymph # (Auto) 5.9 H (0.6-2.4) K/uL Bradley # (Auto) 1.1 H (0.0-0.8) K/uL Eos # (Auto) 0.1 (0.0-0.7) K/uL Baso # (Auto) 0.0 (0.0-0.1) K/uL Nucleated RBC % 0.0 /100WBC Nucleated RBCs # 0 K/uL Sodium 142 (136-145) mmol/L Potassium 3.6 (3.5-5.1) mmol/L Chloride 105 (98-107) mmol/L Carbon Dioxide 24.3 (21.0-32.0) mmol/L BUN 8 (7.0-18.0) mg/dL Creatinine 0.6 (0.6-1.0) mg/dL Est Cr Clr Drug Dosing 76.99 mL/min Estimated GFR (MDRD) > 60.0 ml/min Glucose 111 H (74-106) mg/dL Calcium 8.6 (8.5-10.1) mg/dL Total Bilirubin 0.1 L (0.2-1.0) mg/dL AST 31 (15-37) IU/L ALT 64 H (14-63) IU/L Alkaline Phosphatase 88 (46-116) U/L Troponin I < 0.050 (0.000-0.056) ng/mL Total Protein 7.5 (6.4-8.2) g/dL Albumin 3.7 (3.4-5.0) g/dL Globulin 3.8 (2.6-4.0) g/dL Albumin/Globulin Ratio 1.0 (0.9-1.6) Lipase 133 (73-393) U/L Urine Color YELLOW Urine Appearance CLEAR Urine pH 6.0 (5.0-8.0) Ur Specific Kegley 1.010 (1.001-1.035) Urine Protein NEGATIVE (NEGATIVE) mg/dL Urine Glucose (UA) NEGATIVE (NEGATIVE) mg/dL Urine Ketones NEGATIVE (NEGATIVE) mg/dL Urine Occult Blood TRACE-INTACT H (NEGATIVE) Urine Nitrite NEGATIVE (NEGATIVE) Urine Bilirubin NEGATIVE (NEGATIVE) Urine Urobilinogen 0.2 (<2.0) EU/dL Ur Leukocyte Esterase NEGATIVE (NEGATIVE) Urine RBC 0-2 (0-2/HPF) Urine WBC 0-1 (0-5/HPF) Ur Epithelial Cells OCCASIONAL (NONE-FEW) Amorphous Sediment RARE (NEGATIVE) Urine Bacteria FEW (NEGATIVE) Urine Mucus LIGHT (NONE-MOD) Result Diagrams: 01/23/19 16:15 01/23/19 16:15 EKG INTERPRETATION Rhythm: NSR Sepsis Event Note - Evaluation Sepsis Screening Result: No Definite Risk - Focused Exam Vital Signs: Vital Signs Temp Pulse Resp BP BP Pulse Ox 12/16/19 17:22 86 18 106/66 98 01/23/19 17:18 114/69 01/23/19 17:12 109/72 01/23/19 17:05 132/63 01/23/19 16:11 97.0 F 90 16 173/64 H 99 Date Exam was Performed: 01/23/19 Time Exam was Performed: 18:00 Problem List Initiated/Reviewed/Updated: Yes Orders Last 24hrs: Active Orders 24 hr Category Date Time Status Admission Status [Patient Status] [ADT] Stat ADT 01/23/19 17:17 Active Activity as Tolerated [RC] .Routine Care 01/23/19 17:52 Ordered Antiembolic Devices [RC] PER UNIT ROUTINE Care 01/23/19 17:54 Ordered EKG Documentation Completion [RC] STAT Care 01/23/19 16:23 Active [employer] Diet [DIET] Diet 01/24/19 Breakfast Ordered CBC WITH AUTO DIFF [HEME] AM Lab 01/24/19 05:11 Ordered COMPREHENSIVE METABOLIC PN,CMP [CHEM] AM Lab 01/24/19 05:11 Ordered LIPID PANEL [CHEM] AM Lab 01/24/19 05:11 Ordered MAGNESIUM [CHEM] AM Lab 01/24/19 05:11 Ordered PHOSPHORUS [CHEM] AM Lab 01/24/19 05:11 Ordered TROPONIN I [CHEM] Timed Lab 01/23/19 22:00 Ordered TROPONIN I [CHEM] Timed Lab 01/24/19 04:00 Ordered TSH [CHEM] AM Lab 01/24/19 05:11 Ordered Zolpidem Med 01/23/19 21:00 Ordered 10 mg PO BID atorvaSTATin [Lipitor] Med 01/24/19 09:00 Stop Req 10 mg PO DAILY atorvaSTATin [Lipitor] Med 01/24/19 09:00 Ordered 40 mg PO DAILY glipiZIDE [Glucotrol XL] Med 01/24/19 09:00 Ordered 5 mg PO DAILY lisinopriL [Prinivil] Med 01/24/19 09:00 Ordered 2.5 mg PO DAILY metFORMIN HCl [Fortamet] Med 01/23/19 21:00 Ordered 1,000 mg PO BID SCD [Sequential Compression Device] [OM.PC] Stat Oth 01/23/19 17:53 Ordered Code Status [Resuscitation Status] Stat Resus Stat 01/23/19 17:52 Ordered Medication Orders Glipizide (Glucotrol Xl) 5 mg PO DAILY [facility] Lisinopril (Prinivil) 2.5 mg PO DAILY [facility] Non-Formulary Medication (Metformin Hcl [Fortamet]) 1,000 mg PO BID [facility] Non-Formulary Medication (Zolpidem) 10 mg PO BID [facility] Assessment/Plan Comment:: Assessment: 1. Chest Pain with ACS rule out 2. Type 2 diabetes, obesity 3. Mild transaminitis possibly secondary to fatty liver disease 4. Microscopic hematuria 5. Leukocytosis Plan Admit patient to observation. Full code. Diabetic diet. Activity up ad willam. DVT prophylaxis: SCDs. GI prophylaxis: Pantoprazole 40 daily 1. Chest Pain: To monitor and trend troponin every 6 hours with next test at 10 PM. Initial EKG: Normal sinus rhythm without any ST elevations. Will consider possible outpatient stress test and/or echocardiogram if necessary; continue to monitor. We will also check a magnesium/phosphorus/and TSH. Lipid panel will also be ordered in the a.m./fasting. Patient will be initiated on 81 mg aspirin daily+ atorvastatin increased to 40 mg daily. 2. Type 2 diabetes: Continue home medication regimen. Monitor with Accu-Cheks. /Sliding scale. 3. Transaminitis: Mild; possibly secondary to fatty liver disease versus statin medication 4. Microscopic hematuria: Continue to monitor; patient currently asymptomatic; denies any dysuria urgency frequency; 5. Leukocytosis: Marginally elevated white count: We will continue to monitor as patient is currently afebrile and asymptomatic otherwise; chest x-ray negative; trace hematuria. We will continue to monitor. <Gabo López - Last Filed: 01/23/19 19:29> H&P History of Present Illness - General Admit Problem/Dx: Admission Diagnosis/Problem Admission Diagnosis/Problem Chest pain Exam - Vital Signs Vital Signs: Last Vital Signs Temp 36.3 C 01/23/19 18:29 Pulse 71 01/23/19 18:29 Resp 16 01/23/19 18:29 BP 110/60 01/23/19 18:29 Pulse Ox 97 01/23/19 18:29 - Patient Data Lab Results Last 24 hrs: Laboratory Results - last 24 hr 01/23/19 01/23/19 01/23/19 Range/Units 16:15 16:15 17:00 WBC 12.74 H (4.0-11.0) K/uL RBC 4.41 (4.30-5.90) M/uL Hgb 13.4 (12.0-16.0) g/dL Hct 39.1 (36.0-46.0) % MCV 88.7 (80.0-98.0) fL MCH 30.4 (27.0-32.0) pg MCHC 34.3 (31.0-37.0) g/dL RDW Std Deviation 44.1 (28.0-62.0) fl RDW Coeff of Mary 14 (11.0-15.0) % Plt Count 337 (150-400) K/uL MPV 9.80 (7.40-12.00) fL Neut % (Auto) 43.3 L (48.0-80.0) % Lymph % (Auto) 46.4 H (16.0-40.0) % Bradley % (Auto) 8.9 (0.0-15.0) % Eos % (Auto) 1.1 (0.0-7.0) % Baso % (Auto) 0.3 (0.0-1.5) % Neut # (Auto) 5.5 (1.4-5.7) K/uL Lymph # (Auto) 5.9 H (0.6-2.4) K/uL Bradley # (Auto) 1.1 H (0.0-0.8) K/uL Eos # (Auto) 0.1 (0.0-0.7) K/uL Baso # (Auto) 0.0 (0.0-0.1) K/uL Nucleated RBC % 0.0 /100WBC Nucleated RBCs # 0 K/uL Sodium 142 (136-145) mmol/L Potassium 3.6 (3.5-5.1) mmol/L Chloride 105 (98-107) mmol/L Carbon Dioxide 24.3 (21.0-32.0) mmol/L BUN 8 (7.0-18.0) mg/dL Creatinine 0.6 (0.6-1.0) mg/dL Est Cr Clr Drug Dosing 76.99 mL/min Estimated GFR (MDRD) > 60.0 ml/min Glucose 111 H (74-106) mg/dL Calcium 8.6 (8.5-10.1) mg/dL Total Bilirubin 0.1 L (0.2-1.0) mg/dL AST 31 (15-37) IU/L ALT 64 H (14-63) IU/L Alkaline Phosphatase 88 (46-116) U/L Troponin I < 0.050 (0.000-0.056) ng/mL Total Protein 7.5 (6.4-8.2) g/dL Albumin 3.7 (3.4-5.0) g/dL Globulin 3.8 (2.6-4.0) g/dL Albumin/Globulin Ratio 1.0 (0.9-1.6) Lipase 133 (73-393) U/L Urine Color YELLOW Urine Appearance CLEAR Urine pH 6.0 (5.0-8.0) Ur Specific Kegley 1.010 (1.001-1.035) Urine Protein NEGATIVE (NEGATIVE) mg/dL Urine Glucose (UA) NEGATIVE (NEGATIVE) mg/dL Urine Ketones NEGATIVE (NEGATIVE) mg/dL Urine Occult Blood TRACE-INTACT H (NEGATIVE) Urine Nitrite NEGATIVE (NEGATIVE) Urine Bilirubin NEGATIVE (NEGATIVE) Urine Urobilinogen 0.2 (<2.0) EU/dL Ur Leukocyte Esterase NEGATIVE (NEGATIVE) Urine RBC 0-2 (0-2/HPF) Urine WBC 0-1 (0-5/HPF) Ur Epithelial Cells OCCASIONAL (NONE-FEW) Amorphous Sediment RARE (NEGATIVE) Urine Bacteria FEW (NEGATIVE) Urine Mucus LIGHT (NONE-MOD) Result Diagrams: 01/23/19 16:15 01/23/19 16:15 Sepsis Event Note - Focused Exam Vital Signs: Vital Signs Temp Pulse Resp BP BP Pulse Ox 01/23/19 18:29 36.3 C 71 16 110/60 97 01/23/19 18:15 77 18 112/63 98 01/23/19 17:22 86 18 106/66 98 01/23/19 17:18 114/69 01/23/19 17:12 109/72 01/23/19 17:05 132/63 01/23/19 16:11 36.1 C 90 16 173/64 H 99 Date Exam was Performed: 01/23/19 Time Exam was Performed: 19:29 Orders Last 24hrs: Active Orders 24 hr Category Date Time Status Admission Status [Patient Status] [ADT] Stat ADT 01/23/19 17:17 Active Accu Check [Blood Glucose Check, Bedside] [RC] TIDMEALS Care 01/23/19 19:18 Active Activity as Tolerated [RC] .Routine Care 01/23/19 17:52 Active Antiembolic Devices [RC] PER UNIT ROUTINE Care 01/23/19 17:54 Active Telemetry Monitoring [Cardiac Monitoring] [RC] . Care 01/23/19 18:01 Active DIRECTED [employer] Diet [DIET] Diet 01/24/19 Breakfast Active CBC WITH AUTO DIFF [HEME] AM Lab 01/24/19 05:11 Ordered COMPREHENSIVE METABOLIC PN,CMP [CHEM] AM Lab 01/24/19 05:11 Ordered LIPID PANEL [CHEM] AM Lab 01/24/19 05:11 Ordered MAGNESIUM [CHEM] AM Lab 01/24/19 05:11 Ordered PHOSPHORUS [CHEM] AM Lab 01/24/19 05:11 Ordered TROPONIN I [CHEM] Routine Lab 01/23/19 22:00 Ordered TROPONIN I [CHEM] Timed Lab 01/24/19 04:00 Ordered TSH [CHEM] AM Lab 01/24/19 05:11 Ordered Insulin Aspart [NovoLOG] Med 01/24/19 07:30 Active See Protocol SUBCUT TIDAC Zaleplon [Sonata] Med 01/24/19 21:00 Active 10 mg PO BEDTIME atorvaSTATin [Lipitor] Med 01/24/19 09:00 Active 40 mg PO DAILY glipiZIDE [Glucotrol XL] Med 01/24/19 09:00 Active 5 mg PO DAILY lisinopriL [Prinivil] Med 01/24/19 09:00 Active 2.5 mg PO DAILY metFORMIN HCl [Fortamet] Med 01/23/19 21:00 Active 1,000 mg PO BID SCD [Sequential Compression Device] [OM.PC] Stat Oth 01/23/19 17:53 Ordered Code Status [Resuscitation Status] Stat Resus Stat 01/23/19 17:52 Ordered Medication Orders Atorvastatin Calcium (Lipitor) 40 mg PO DAILY [facility] Glipizide (Glucotrol Xl) 5 mg PO DAILY [facility] Insulin Aspart (Novolog) 0 unit SUBCUT TIDAC [facility]; Protocol Lisinopril (Prinivil) 2.5 mg PO DAILY [facility] Non-Formulary Medication (Metformin Hcl [Fortamet]) 1,000 mg PO BID [facility] Zaleplon (Sonata) 10 mg PO BEDTIME [facility] Assessment/Plan Comment:: I performed a history and physical exam of the patient and discussed management with resident. I have reviewed the residents note and agree with documented findings and plan unless otherwise specified in my note.
[2019-01-23] MEDS ORDERED: LORazepam 2 MG/ML SDV IVPUSH ONE (19:03)
[2019-01-23] MEDS ORDERED: Morphine 2 MG/ML Syringe IVPUSH ONE (19:59)
[2019-01-23] MEDS: Insulin Glargine,Human Rec. Analog 100 Units/ML 3 ML Pen SUBCUT SCH (20:41)
[2019-01-23] MEDS: Pantoprazole 40 MG in Sodium Chloride 0.9% 10 ML IV SCH (20:42)
[2019-01-23] MEDS ORDERED: Non-Formulary Medication 1 Each (Zolpidem 10 MG) PO SCH (21:00)
[2019-01-23] MEDS ORDERED: Non-Formulary Medication 1 Each (Metformin Hcl [Fortamet] 1,000 MG) PO SCH (21:00)
[2019-01-23] MEDS: Ketorolac 15 MG/ML SDV IVPUSH PRN (23:01)
[2019-01-24 04:34] LABS: BLOOD UREA NITROGEN,BUN 6 mg/dL (7.0-18.0); CARBON DIOXIDE,CO2 27.4 mmol/L (21.0-32.0); CHLORIDE,CL 107 mmol/L (98-107); GLUCOSE RANDOM 65 mg/dL (74-106); POTASSIUM,K 3.8 mmol/L (3.5-5.1); SODIUM,NA 143 mmol/L (136-145)
[2019-01-24] MEDS: Ketorolac 15 MG/ML SDV IVPUSH PRN (05:26)
[2019-01-24] MEDS: Insulin Aspart 100 Units/ML 3 ML Pen SUBCUT SCH ×2 (06:47→11:48)
[2019-01-24] MEDS ORDERED: Magnesium Sulfate (4.06 MEQ/ML) 1 GM/2 ML SDV IV ONE (08:07)
[2019-01-24] MEDS ORDERED: Ondansetron 4 MG Tab.DIS PO PRN (08:18)
[2019-01-24] MEDS ORDERED: Lisinopril 5 MG Tab PO SCH (09:00)
[2019-01-24] MEDS ORDERED: atorvaSTATin 10 MG Tab PO SCH ×2 (09:00)
[2019-01-24] MEDS ORDERED: glipiZIDE 5 MG Tab.ER PO SCH (09:00)
[2019-01-24] MEDS: Pantoprazole 40 MG in Sodium Chloride 0.9% 10 ML IV SCH (09:07)
--- NOTE | 2019-01-24 09:25 | PCM.DCSUM1 ---
Discharge Summary - Hospital Course Free Text/Narrative:: Discharge summary Admission date January 23, 2019 Discharge date January 24, 2019 Admission diagnoses: Chest pain/ACS rule out Past medical history: Type 2 diabetes, obesity Leukocytosis Discharge diagnoses: Chest Pain whith ACS ruled out Elevated TSH/hypothyroidism Type 2 diabetes Obesity Consultations: None Procedures: None Hospital course: Patient is a 53-year-old female with past medical history of type 2 diabetes presenting with 2 episodes of substernal chest discomfort. Initial episode occurred with exertion however following episode occurred while at home. ER course: Initial EKG and troponin were negative. Throughout stay patient was monitored via troponin which were all negative. Patient endorsed some anxiety and did have improvement with Ativan 1 mg. Day of discharge however patient did develop some nausea omitting after eating breakfast; was given Zofran and was feeling better. Due to family history of CAD, indeterminate cause of chest pain; iniitted pt. on ASA 81 mg daily. Rx for stress test provided to patient w. appointment w. Cardiology placed. Pt. does endosre a chronic history of Insomnia; sleep study scheduled for February. ADvised to discontinue the ambien; rx. for Trazodone provided/sent to pharmacy x 5-days in the interim. Discharge condition: Stable Disposition: Home Discharge medications: See attached chart Discharge instructions: Patient advised to follow primary care regarding elevated TSH and possible history of anxiety. Patient advised return to ER if chest pain develops again with shortness of breath. Follow-up: PCP/ Cardiology - Discharge Data Discharge Date: 01/24/19 Discharge Disposition: Home, Self-Care 01 Condition: Stable - Referral to Home Health Primary Care Physician: PCP Unobtainable - Patient Instructions Diet: Diabetic Diet Driving: May Drive Today Showering/Bathing: May Shower Notify Provider of: Fever, Increased Pain, Swelling and Redness, Drainage, Nausea and/or Vomiting - Discharge Plan *PRESCRIPTION DRUG MONITORING PROGRAM REVIEWED*: No *COPY OF PRESCRIPTION DRUG MONITORING REPORT IN PATIENT MARIA GUADALUPE: No Prescriptions/Med Rec: Aspirin 81 mg PO BEDTIME 10 Days #10 tab.chew Ondansetron [Zofran ODT] 4 mg PO Q6H PRN 2 Days #8 tab.dis PRN Reason: Nausea/Vomiting traZODone HCl [Trazodone HCl] 50 mg PO BEDTIME 5 Days #5 tablet Home Medications: Home Meds Lisinopril 2.5 mg PO DAILY 05/05/15 [History] atorvaSTATin [Lipitor] 1 tab PO DAILY 06/12/14 [History] metFORMIN HCl [Fortamet] 1,000 mg PO BID 06/12/16 [History] Dulaglutide [Trulicity] 1.5 mg SQ WEEKLY 09/21/18 [History] glipiZIDE [Glipizide ER] 5 mg PO DAILY 09/21/18 [History] Insulin Glargine,Hum.Rec.Anlog [Basaglar Kwikpen U-100] 80 unit SQ DAILY [History] Aspirin 81 mg PO BEDTIME 10 Days #10 tab.chew 01/24/19 [Rx] Ondansetron [Zofran ODT] 4 mg PO Q6H PRN 2 Days #8 tab.dis 01/24/19 [Rx] traZODone HCl [Trazodone HCl] 50 mg PO BEDTIME 5 Days #5 tablet 01/24/19 [Rx] Patient Handouts: Trazodone tablets, Nonspecific Chest Pain, Fdox-et-Gpsq Referrals: Jhoana Rizvi MD [Physician] - 02/22/19 9:30 am Barrett Solorio MD [Ordering Only Provider] - - Discharge Summary/Plan Comment DC Time >30 min.: No - Patient Data Vitals - Most Recent: Last Vital Signs Temp 97.4 F 01/24/19 07:54 Pulse 81 01/24/19 07:54 Resp 17 01/24/19 07:54 BP 108/55 L 01/24/19 09:04 Pulse Ox 94 L 01/24/19 07:54 Weight - Most Recent: 227 lb 15.327 oz I&O - Last 24 hours: Intake & Output 01/23/19 01/24/19 01/24/19 22:59 06:59 14:59 Intake Total 800 Output Total 2150 Balance -1350 Lab Results - Last 24 hrs: Laboratory Results - last 24 hr 01/23/19 01/23/19 01/23/19 Range/Units 16:15 16:15 17:00 WBC 12.74 H (4.0-11.0) K/uL RBC 4.41 (4.30-5.90) M/uL Hgb 13.4 (12.0-16.0) g/dL Hct 39.1 (36.0-46.0) % MCV 88.7 (80.0-98.0) fL MCH 30.4 (27.0-32.0) pg MCHC 34.3 (31.0-37.0) g/dL RDW Std Deviation 44.1 (28.0-62.0) fl RDW Coeff of Mary 14 (11.0-15.0) % Plt Count 337 (150-400) K/uL MPV 9.80 (7.40-12.00) fL Neut % (Auto) 43.3 L (48.0-80.0) % Lymph % (Auto) 46.4 H (16.0-40.0) % [place] % (Auto) 8.9 (0.0-15.0) % Eos % (Auto) 1.1 (0.0-7.0) % Baso % (Auto) 0.3 (0.0-1.5) % Neut # (Auto) 5.5 (1.4-5.7) K/uL Lymph # (Auto) 5.9 H (0.6-2.4) K/uL [place] # (Auto) 1.1 H (0.0-0.8) K/uL Eos # (Auto) 0.1 (0.0-0.7) K/uL Baso # (Auto) 0.0 (0.0-0.1) K/uL Nucleated RBC % 0.0 /100WBC Nucleated RBCs # 0 K/uL Sodium 142 (136-145) mmol/L Potassium 3.6 (3.5-5.1) mmol/L Chloride 105 (98-107) mmol/L Carbon Dioxide 24.3 (21.0-32.0) mmol/L BUN 8 (7.0-18.0) mg/dL Creatinine 0.6 (0.6-1.0) mg/dL Est Cr Clr Drug Dosing 76.99 mL/min Estimated GFR (MDRD) > 60.0 ml/min Glucose 111 H (74-106) mg/dL POC Glucose (60-110) mg/dL Calcium 8.6 (8.5-10.1) mg/dL Phosphorus (2.6-4.7) mg/dL Magnesium (1.8-2.4) mg/dL Total Bilirubin 0.1 L (0.2-1.0) mg/dL AST 31 (15-37) IU/L ALT 64 H (14-63) IU/L Alkaline Phosphatase 88 (46-116) U/L Troponin I < 0.050 (0.000-0.056) ng/mL Total Protein 7.5 (6.4-8.2) g/dL Albumin 3.7 (3.4-5.0) g/dL Globulin 3.8 (2.6-4.0) g/dL Albumin/Globulin Ratio 1.0 (0.9-1.6) Lipase 133 (73-393) U/L TSH 3rd Generation (0.36-3.74) uIU/mL Urine Color YELLOW Urine Appearance CLEAR Urine pH 6.0 (5.0-8.0) Ur Specific [place] 1.010 (1.001-1.035) Urine Protein NEGATIVE (NEGATIVE) mg/dL Urine Glucose (UA) NEGATIVE (NEGATIVE) mg/dL Urine Ketones NEGATIVE (NEGATIVE) mg/dL Urine Occult Blood TRACE-INTACT H (NEGATIVE) Urine Nitrite NEGATIVE (NEGATIVE) Urine Bilirubin NEGATIVE (NEGATIVE) Urine Urobilinogen 0.2 (<2.0) EU/dL Ur Leukocyte Esterase NEGATIVE (NEGATIVE) Urine RBC 0-2 (0-2/HPF) Urine WBC 0-1 (0-5/HPF) Ur Epithelial Cells OCCASIONAL (NONE-FEW) Amorphous Sediment RARE (NEGATIVE) Urine Bacteria FEW (NEGATIVE) Urine Mucus LIGHT (NONE-MOD) 01/23/19 01/23/19 01/24/19 Range/Units 20:26 22:05 03:48 WBC (4.0-11.0) K/uL RBC (4.30-5.90) M/uL Hgb (12.0-16.0) g/dL Hct (36.0-46.0) % MCV (80.0-98.0) fL MCH (27.0-32.0) pg MCHC (31.0-37.0) g/dL RDW Std Deviation (28.0-62.0) fl RDW Coeff of Mary (11.0-15.0) % Plt Count (150-400) K/uL MPV (7.40-12.00) fL Neut % (Auto) (48.0-80.0) % Lymph % (Auto) (16.0-40.0) % [place] % (Auto) (0.0-15.0) % Eos % (Auto) (0.0-7.0) % Baso % (Auto) (0.0-1.5) % Neut # (Auto) (1.4-5.7) K/uL Lymph # (Auto) (0.6-2.4) K/uL [place] # (Auto) (0.0-0.8) K/uL Eos # (Auto) (0.0-0.7) K/uL Baso # (Auto) (0.0-0.1) K/uL Nucleated RBC % /100WBC Nucleated RBCs # K/uL Sodium 143 (136-145) mmol/L Potassium 3.8 (3.5-5.1) mmol/L Chloride 107 (98-107) mmol/L Carbon Dioxide 27.4 (21.0-32.0) mmol/L BUN 6 L (7.0-18.0) mg/dL Creatinine 0.6 (0.6-1.0) mg/dL Est Cr Clr Drug Dosing 76.99 mL/min Estimated GFR (MDRD) > 60.0 ml/min Glucose 65 L (74-106) mg/dL POC Glucose 73 (60-110) mg/dL Calcium 8.3 L (8.5-10.1) mg/dL Phosphorus 4.9 H (2.6-4.7) mg/dL Magnesium 1.6 L (1.8-2.4) mg/dL Total Bilirubin 0.2 (0.2-1.0) mg/dL AST 29 (15-37) IU/L ALT 51 (14-63) IU/L Alkaline Phosphatase 71 (46-116) U/L Troponin I < 0.050 (0.000-0.056) ng/mL Total Protein 6.1 L (6.4-8.2) g/dL Albumin 3.2 L (3.4-5.0) g/dL Globulin 2.9 (2.6-4.0) g/dL Albumin/Globulin Ratio 1.1 (0.9-1.6) Lipase (73-393) U/L TSH 3rd Generation 4.12 H (0.36-3.74) uIU/mL Urine Color Urine Appearance Urine pH (5.0-8.0) Ur Specific [place] (1.001-1.035) Urine Protein (NEGATIVE) mg/dL Urine Glucose (UA) (NEGATIVE) mg/dL Urine Ketones (NEGATIVE) mg/dL Urine Occult Blood (NEGATIVE) Urine Nitrite (NEGATIVE) Urine Bilirubin (NEGATIVE) Urine Urobilinogen (<2.0) EU/dL Ur Leukocyte Esterase (NEGATIVE) Urine RBC (0-2/HPF) Urine WBC (0-5/HPF) Ur Epithelial Cells (NONE-FEW) Amorphous Sediment (NEGATIVE) Urine Bacteria (NEGATIVE) Urine Mucus (NONE-MOD) 01/24/19 01/24/19 01/24/19 Range/Units 03:48 03:48 05:49 WBC 8.81 (4.0-11.0) K/uL RBC 3.84 L (4.30-5.90) M/uL Hgb 11.6 L (12.0-16.0) g/dL Hct 34.2 L (36.0-46.0) % MCV 89.1 (80.0-98.0) fL MCH 30.2 (27.0-32.0) pg MCHC 33.9 (31.0-37.0) g/dL RDW Std Deviation 45.0 (28.0-62.0) fl RDW Coeff of Mary 14 (11.0-15.0) % Plt Count 292 (150-400) K/uL MPV 9.40 (7.40-12.00) fL Neut % (Auto) 32.9 L (48.0-80.0) % Lymph % (Auto) 56.5 H (16.0-40.0) % [place] % (Auto) 8.1 (0.0-15.0) % Eos % (Auto) 2.3 (0.0-7.0) % Baso % (Auto) 0.2 (0.0-1.5) % Neut # (Auto) 2.9 (1.4-5.7) K/uL Lymph # (Auto) 5.0 H (0.6-2.4) K/uL [place] # (Auto) 0.7 (0.0-0.8) K/uL Eos # (Auto) 0.2 (0.0-0.7) K/uL Baso # (Auto) 0.0 (0.0-0.1) K/uL Nucleated RBC % 0.0 /100WBC Nucleated RBCs # 0 K/uL Sodium (136-145) mmol/L Potassium (3.5-5.1) mmol/L Chloride (98-107) mmol/L Carbon Dioxide (21.0-32.0) mmol/L BUN (7.0-18.0) mg/dL Creatinine (0.6-1.0) mg/dL Est Cr Clr Drug Dosing mL/min Estimated GFR (MDRD) ml/min Glucose (74-106) mg/dL POC Glucose 60 (60-110) mg/dL Calcium (8.5-10.1) mg/dL Phosphorus (2.6-4.7) mg/dL Magnesium (1.8-2.4) mg/dL Total Bilirubin (0.2-1.0) mg/dL AST (15-37) IU/L ALT (14-63) IU/L Alkaline Phosphatase (46-116) U/L Troponin I < 0.050 (0.000-0.056) ng/mL Total Protein (6.4-8.2) g/dL Albumin (3.4-5.0) g/dL Globulin (2.6-4.0) g/dL Albumin/Globulin Ratio (0.9-1.6) Lipase (73-393) U/L TSH 3rd Generation (0.36-3.74) uIU/mL Urine Color Urine Appearance Urine pH (5.0-8.0) Ur Specific [place] (1.001-1.035) Urine Protein (NEGATIVE) mg/dL Urine Glucose (UA) (NEGATIVE) mg/dL Urine Ketones (NEGATIVE) mg/dL Urine Occult Blood (NEGATIVE) Urine Nitrite (NEGATIVE) Urine Bilirubin (NEGATIVE) Urine Urobilinogen (<2.0) EU/dL Ur Leukocyte Esterase (NEGATIVE) Urine RBC (0-2/HPF) Urine WBC (0-5/HPF) Ur Epithelial Cells (NONE-FEW) Amorphous Sediment (NEGATIVE) Urine Bacteria (NEGATIVE) Urine Mucus (NONE-MOD) Med Orders - Current: Current Medications Atorvastatin Calcium (Lipitor) 40 mg PO DAILY [facility] Last Admin: 01/24/19 09:02 Dose: 40 mg Glipizide (Glucotrol Xl) 5 mg PO DAILY [facility] Last Admin: 01/24/19 09:03 Dose: 5 mg Pantoprazole Sodium 40 mg/ (Sodium Chloride) 10 mls @ 300 mls/hr IV DAILY [facility] Last Admin: 01/24/19 09:07 Dose: 300 mls/hr Insulin Aspart (Novolog) 0 unit SUBCUT TIDAC [facility]; Protocol Last Admin: 01/24/19 06:47 Dose: Not Given Insulin Glargine (Lantus Solostar) 80 units SUBCUT DAILY [facility] Last Admin: 01/23/19 20:41 Dose: 80 units Ketorolac Tromethamine (Toradol) 15 mg IVPUSH Q6H PRN PRN Reason: Pain Stop: 01/28/19 20:00 Last Admin: 01/24/19 05:26 Dose: 15 mg Lisinopril (Prinivil) 2.5 mg PO DAILY [facility] Last Admin: 01/24/19 09:04 Dose: 2.5 mg Ondansetron HCl (Zofran Odt) 8 mg PO ONETIME PRN PRN Reason: Nausea/Vomiting Last Admin: 01/24/19 09:01 Dose: 8 mg Zaleplon (Sonata) 10 mg PO BEDTIME [facility] Discontinued Medications Aspirin (Aspirin) 324 mg PO ONETIME ONE Stop: 01/23/19 16:43 Last Admin: 01/23/19 17:02 Dose: 324 mg Atorvastatin Calcium (Lipitor) 10 mg PO DAILY [facility] Sodium Chloride (Normal Saline) 1,000 mls @ 999 mls/hr IV STAT ONE Stop: 01/23/19 17:43 Last Admin: 01/23/19 17:02 Dose: 999 mls/hr Magnesium Sulfate 1 gm/ Sodium (Chloride) 52 mls @ 104 mls/hr IV ONETIME ONE Stop: 01/24/19 08:54 Magnesium Sulfate 1 gm/ Sodium (Chloride) 52 mls @ 104 mls/hr IV ONETIME ONE Stop: 01/24/19 08:59 Last Admin: 01/24/19 08:53 Dose: 104 mls/hr Lorazepam (Ativan) 1 mg IVPUSH ONETIME ONE Stop: 01/23/19 19:04 Last Admin: 01/23/19 19:34 Dose: 1 mg Morphine Sulfate (Morphine) 2 mg IVPUSH ONETIME ONE Stop: 01/23/19 20:00 Last Admin: 01/23/19 20:56 Dose: 2 mg Nitroglycerin (Nitrostat) 0.4 mg SL Q5M PRN PRN Reason: Chest Pain Last Admin: 01/23/19 17:18 Dose: 0.4 mg Non-Formulary Medication (Metformin Hcl [Fortamet]) 1,000 mg PO BID [facility] Non-Formulary Medication (Zolpidem) 10 mg PO BID [facility]
[2019-01-24] MEDS: Insulin Glargine,Human Rec. Analog 100 Units/ML 3 ML Pen SUBCUT SCH (09:29)
[2019-01-24] MEDS ORDERED: Aspirin 81 MG Tab.Chew PO ONE (11:12)
[2019-01-24 11:34] VITALS: BP 121/65; PULSE 84
[2019-01-24] MEDS ORDERED: oxyCODONE 5 MG Tab PO PRN (12:26)
== END 2019-01-24 14:00 | disposition home or self-care (01) ==
LOC: MW.ED 16:07 → MW.MS 18:21
PROVIDERS: ADMIT Student in an Organized Health Care Education/Training Program; ATTEND Student in an Organized Health Care Education/Training Program
DX: R07.89 Other chest pain (principal); I10 Essential (primary) hypertension; E11.9 Type 2 diabetes mellitus without complications; E03.9 Hypothyroidism, unspecified; E78.00 Pure hypercholesterolemia, unspecified; E66.9 Obesity, unspecified; D72.829 Elevated white blood cell count, unspecified; R31.29 Other microscopic hematuria; Z88.5 Allergy status to narcotic agent; Z82.49 Family history of ischemic heart disease and other diseases of the circulatory system; Z79.4 Long term (current) use of insulin; Z79.899 Other long term (current) drug therapy; Z68.41 Body mass index [BMI] 40.0-44.9, adult
CPT/HCPCS: 36415; 71045; 80053; 81001; 82962; 83690; 83735; 84100; 84443; 84484; 85025; 93005; 96360; 99285; A9270; C9113; J1815; J1885; J2060; J2270; J3475; J7030; J7050; 96361; 96374; 96375; 96376; 99284; G0378

== ENCOUNTER 2022-08-22 15:14 | Observation (INO) | payer BC ==
[2022-08-22] MEDS ORDERED: HYDROmorphone 1 MG/ML Syringe IVPUSH ONE ×3 (15:20→18:26)
[2022-08-22] MEDS ORDERED: Ondansetron 4 MG/2 ML SDV IVPUSH ONE (15:21)
[2022-08-22] MEDS ORDERED: Lactated Ringers 1,000 ML IV SCH (15:30)
[2022-08-22] MEDS ORDERED: fentaNYL 100 MCG/2 ML SDV ONE (16:48)
[2022-08-22] MEDS ORDERED: Ketorolac 30 MG/ML SDV IVPUSH ONE (16:59)
[2022-08-22] MEDS ORDERED: Acetaminophen 325 MG Tab PO ONE (16:59)
[2022-08-22] MEDS ORDERED: fentaNYL 100 MCG/2 ML SDV IVPUSH ONE (17:07)
[2022-08-22] MEDS ORDERED: Naloxone 0.4 MG/ML SDV IVPUSH PRN ×2 (17:07→19:13)
[2022-08-22] MEDS ORDERED: Albuterol/Ipratropium 3.0-0.5 MG/3 ML Neb Soln NEB PRN (19:13)
[2022-08-22] MEDS ORDERED: Polyethylene Glycol 3350 Powder 17 GM Packet PO PRN (19:13)
[2022-08-22] MEDS ORDERED: HYDROmorphone 2 MG/ML Syringe IVPUSH PRN (19:13)
[2022-08-22] MEDS ORDERED: Sodium Chloride 0.9% 2.5 ML Syringe FLUSH PRN (19:13)
[2022-08-22] MEDS ORDERED: Sodium Chloride 0.9% 10 ML Syringe FLUSH PRN (19:13)
[2022-08-22] MEDS ORDERED: 50% Dextrose in Water 50 ML Syringe IVPUSH PRN (19:26)
[2022-08-22] MEDS ORDERED: Glucagon,Human Recombinant 1 MG Vial IM PRN (19:26)
[2022-08-22 20:01] LABS: BASOPHILS PERCENT AUTO 0.2 % (0.0-1.5); EOSINOPHILS PERCENT AUTO 0.1 % (0.0-7.0); HEMATOCRIT 37.4 % (36.0-46.0); LYMPHOCYTES ABSOLUTE AUTO 2.2 K/uL (0.6-2.4); LYMPHOCYTES PERCENT AUTO 13.7 % (16.0-40.0); MEAN CORPUSCULAR HEMOGLOBIN 30.8 pg (27.0-32.0); MEAN CORPUSCULAR HGB CONC 34.8 g/dL (31.0-37.0); MEAN CORPUSCULAR VOLUME 88.6 fL (80.0-98.0); MONOCYTES ABSOLUTE AUTO 0.9 K/uL (0.0-0.8); MONOCYTES PERCENT AUTO 5.8 % (0.0-15.0); NEUTROPHILS ABSOLUTE AUTO 12.9 K/uL (1.4-5.7); NEUTROPHILS PERCENT AUTO 80.2 % (48.0-80.0); NRBC ABSOLUTE 0 K/uL; PLATELET COUNT,PLT 405 K/uL (150-400); RED BLOOD CELL COUNT 4.22 M/uL (4.30-5.90); WHITE BLOOD CELL COUNT,WBC 16.08 K/uL (4.0-11.0)
[2022-08-22 20:22] LABS: A/G RATIO 0.9 (0.9-1.6); ALBUMIN 3.4 g/dL (3.4-5.0); BILIRUBIN TOTAL 0.2 mg/dL (0.2-1.0); CALCIUM 8.5 mg/dL (8.5-10.1); CARBON DIOXIDE,CO2 21.9 mmol/L (21.0-32.0); CREATININE 0.7 mg/dL (0.6-1.0); EST CRCL DRUG DOSING (CG) 62.92 mL/min; POTASSIUM,K 4.6 mmol/L (3.5-5.1); PROTEIN TOTAL,TP 7.1 g/dL (6.4-8.2)
[2022-08-22] MEDS: Acetaminophen/oxyCODONE 325-5 MG Tab PO PRN (21:26)
[2022-08-22] MEDS: Enoxaparin 40 MG/0.4 ML Syringe SUBCUT SCH (21:56)
[2022-08-22] MEDS: traZODone 50 MG Tab PO SCH (22:14)
[2022-08-22] MEDS: Insulin Aspart 100 Units/ML 3 ML Pen SUBCUT SCH (22:29)
[2022-08-22 22:45] LABS: APPEARANCE,URINE CLEAR; BILIRUBIN,URINE NEGATIVE (NEGATIVE); COLOR,URINE YELLOW; GLUCOSE,URINE 100 mg/dL (NEGATIVE); KETONES,URINE NEGATIVE (NEGATIVE); LEUKOCYTE ESTERASE,URINE NEGATIVE (NEGATIVE); NITRITE,URINE NEGATIVE (NEGATIVE); OCCULT BLOOD,URINE NEGATIVE (NEGATIVE); PH,URINE 5.5 (5.0-8.0); PROTEIN,URINE NEGATIVE (NEGATIVE); UROBILINOGEN,URINE 0.2 EU/dL (<2.0)
[2022-08-22] MEDS: HYDROmorphone 1 MG/ML Syringe IVPUSH PRN (22:58)
[2022-08-23] MEDS: LORazepam 2 MG/ML SDV IVPUSH PRN ×4 (00:42→22:38)
[2022-08-23] MEDS: HYDROmorphone 1 MG/ML Syringe IVPUSH PRN ×8 (02:27→22:39)
[2022-08-23] MEDS: Acetaminophen/oxyCODONE 325-5 MG Tab PO PRN ×2 (04:05→12:13)
[2022-08-23 06:02] LABS: HEMATOCRIT 32.5 % (36.0-46.0); HEMOGLOBIN 11.1 g/dL (12.0-16.0); MEAN CORPUSCULAR HEMOGLOBIN 30.6 pg (27.0-32.0); MEAN CORPUSCULAR HGB CONC 34.2 g/dL (31.0-37.0); MEAN CORPUSCULAR VOLUME 89.5 fL (80.0-98.0); MEAN PLATELET VOLUME 9.4 fL (7.40-12.00); RED BLOOD CELL COUNT 3.63 M/uL (4.30-5.90); WHITE BLOOD CELL COUNT,WBC 9.65 K/uL (4.0-11.0)
[2022-08-23 06:20] LABS: CALCIUM 8.2 mg/dL (8.5-10.1); CARBON DIOXIDE,CO2 24.6 mmol/L (21.0-32.0); CREATININE 0.7 mg/dL (0.6-1.0); EST CRCL DRUG DOSING (CG) 62.92 mL/min; POTASSIUM,K 4.3 mmol/L (3.5-5.1)
[2022-08-23] MEDS: Insulin Aspart 100 Units/ML 3 ML Pen SUBCUT SCH ×3 (07:17→17:13)
[2022-08-23] MEDS ORDERED: atorvaSTATin 10 MG Tab PO SCH ×2 (09:00→21:00)
[2022-08-23] MEDS: Lisinopril 5 MG Tab PO SCH (09:48)
[2022-08-23] MEDS ORDERED: Cyclobenzaprine 10 MG Tab PO PRN (10:00)
[2022-08-23] MEDS: Ondansetron 4 MG/2 ML SDV IVPUSH PRN ×2 (12:13→19:56)
[2022-08-23] MEDS ORDERED: Acetaminophen 325 MG Tab PO PRN (15:00)
[2022-08-23] MEDS: oxyCODONE 5 MG Tab PO SCH ×2 (15:15→20:04)
[2022-08-23] MEDS: Lactated Ringers 1,000 ML IV SCH (15:56)
[2022-08-23] MEDS ORDERED: DULAGLUTIDE 4.5 MG/0.5 ML SUBCUT SCH (19:00)
[2022-08-23] MEDS: Enoxaparin 40 MG/0.4 ML Syringe SUBCUT SCH (19:06)
[2022-08-23] MEDS: Cyclobenzaprine 10 MG Tab PO PRN (19:09)
[2022-08-23] MEDS: traZODone 50 MG Tab PO SCH (20:05)
[2022-08-23] MEDS ORDERED: Melatonin 3 MG Tab PO PRN (21:00)
[2022-08-24] MEDS: Lactated Ringers 1,000 ML IV SCH ×2 (00:27→08:07)
[2022-08-24] MEDS: oxyCODONE 5 MG Tab PO SCH ×3 (03:37→14:00)
[2022-08-24] MEDS: Cyclobenzaprine 10 MG Tab PO PRN (04:46)
[2022-08-24] MEDS: LORazepam 2 MG/ML SDV IVPUSH PRN ×3 (05:07→19:16)
[2022-08-24] MEDS: Ondansetron 4 MG/2 ML SDV IVPUSH PRN ×2 (06:24→17:55)
[2022-08-24] MEDS: Insulin Aspart 100 Units/ML 3 ML Pen SUBCUT SCH ×3 (06:34→18:17)
[2022-08-24] MEDS: Lisinopril 5 MG Tab PO SCH (08:06)
[2022-08-24] MEDS: HYDROmorphone 1 MG/ML Syringe IVPUSH PRN ×4 (09:34→19:15)
[2022-08-24] MEDS: Acetaminophen 500 MG Tab PO SCH ×2 (10:45→17:45)
[2022-08-24] MEDS: Enoxaparin 40 MG/0.4 ML Syringe SUBCUT SCH ×2 (17:48→18:20)
[2022-08-24 20:07] VITALS: BP 146/78; PULSE 100
== END 2022-08-24 19:50 ==
LOC: MW.ED 15:14 → MW.MS 18:27
PROVIDERS: ADMIT Family Medicine; ATTEND Family Medicine
DX: S42.352A Displaced comminuted fracture of shaft of humerus, left arm, initial encounter for closed fracture (principal); S42.351A Displaced comminuted fracture of shaft of humerus, right arm, initial encounter for closed fracture; E78.00 Pure hypercholesterolemia, unspecified; I10 Essential (primary) hypertension; G43.909 Migraine, unspecified, not intractable, without status migrainosus; M19.90 Unspecified osteoarthritis, unspecified site; F41.9 Anxiety disorder, unspecified; E11.9 Type 2 diabetes mellitus without complications; Z20.822 Contact with and (suspected) exposure to COVID-19; Z79.84 Long term (current) use of oral hypoglycemic drugs; Z79.4 Long term (current) use of insulin; Z79.899 Other long term (current) drug therapy; Z88.5 Allergy status to narcotic agent; Z79.82 Long term (current) use of aspirin; W01.0XXA Fall on same level from slipping, tripping and stumbling without subsequent striking against object, initial encounter
CPT/HCPCS: 36415; 73060; 73100; 80048; 80053; 81003; 82947; 85025; 85027; 86850; 86900; 86901; 87635; 96361; 96372; 96374; 96375; 96376; 99285; A9270; G0378; J1170; J1650; J1815; J1885; J2060; J2405; J3010; J7120; 99222; 99232; 99239; 99284; U0002

== ENCOUNTER 2024-05-24 08:01 | Day surgery (SDC) | payer BC, OTHER ==
[~2024-05-24 08:01] MED LIST: Lidocaine 2% 5 ML SDV ONE; propofoL 500 MG/50 ML 50 ML ONE
[2024-05-24] MEDS: Lactated Ringers 1,000 ML IV SCH (08:45)
[2024-05-24] MEDS ORDERED: Midazolam 1 MG/ML 2 ML SDV ONE (09:49)
[2024-05-24] MEDS ORDERED: propofoL 500 MG/50 ML 50 ML ONE ×2 (10:16→10:30)
[2024-05-24] MEDS ORDERED: fentaNYL 100 MCG/2 ML SDV ONE (11:00)
[2024-05-24 12:27] VITALS: BP 120/78; PULSE 89
== END 2024-05-24 11:43 | disposition home or self-care (01) ==
LOC: MW.SDS 08:01
PROVIDERS: ATTEND Surgery
DX: Z12.11 Encounter for screening for malignant neoplasm of colon (principal); K64.8 Other hemorrhoids; E78.00 Pure hypercholesterolemia, unspecified; E11.9 Type 2 diabetes mellitus without complications; F32.A Depression, unspecified; F41.9 Anxiety disorder, unspecified; Z79.85 Long-term (current) use of injectable non-insulin antidiabetic drugs; Z79.84 Long term (current) use of oral hypoglycemic drugs; Z79.899 Other long term (current) drug therapy
CPT/HCPCS: 45378; J2003; J2250; J2704; J3010; J7120; 00812